=== PATIENT | female | born 2000 | race Caucasian/White ===

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

== ENCOUNTER 2021-03-08 01:18 | Emergency (ER) | payer OTHER ==
[~2021-03-08 01:18] MED LIST changes: +BENADRYL 50MG C50 MG PO; +PEPCID20 MG PO; +PREDNISONE50 MG PO
[2021-03-08 02:49] LABS: HEMOGLOBIN 12.8 gm/dl (12.3-15.3); RED BLOOD COUNT 4.59 M/UL (4.00-5.10); WHITE BLOOD COUNT 11.7 K/UL (4.5-11.0)
[2021-03-08 03:06] LABS: BUN/CREATININE RATIO 9 (0-10)
== END 2021-03-08 11:00 | disposition home or self-care (01) ==
LOC: ER1 01:18
PROVIDERS: Physician Assistant Medical
DX: K81.0 Acute cholecystitis (principal); N83.201 Unspecified ovarian cyst, right side; Z90.89 Acquired absence of other organs
CPT/HCPCS: 76705; 76830; 80053; 83690; 84703; 85025; 87040; 96365; 96374; 96375; 99285; J1885; J2270; Q9967